=== PATIENT | male | born 1980 | race Caucasian/White ===

== ENCOUNTER 2017-01-29 23:52 | Emergency (ER) | payer MEDICAID, MEDICARE ==
[~2017-01-29] VITALS: Ht 175.3 cm; Wt 99.8 kg
[~2017-01-29 23:52] MED LIST: ALPR0.5T PO; ALPR1T; ALPR1TAB2 PO; CARI250T PO; CEPH500C PO; CRB200T PO; CRS350T PO; HYDR-2890 PO; HYDR-34 PO; HYDR118S10 PO; HYDR1CAP2; METO10TA3 PO; MORP100C16 PO; MORP10CA8 PO; MORP15TA PO; MTH750T PO; NF-ESOM40C PO; OXYC15TA74 PO; TRAM-21 PO; TRAM50TA2 PO; seizure medication PO
[2017-01-29] MEDS ORDERED: EPINEPHrine INJECTION 1 MG/ML AMP IV ONE (23:54)
[2017-01-29] MEDS ORDERED: NS (IVPB) 250 ML IV ONE (23:54)
[2017-01-30] MEDS ORDERED: D5W IV SOLUTION (EXCEL) 250 ML IV ONE (00:35)
[2017-01-30] MEDS ORDERED: NOREPINEPHRINE 4 MG/4 ML (LEVOPHED) AMP IV ONE (00:36)
[2017-01-30 00:39] LABS: MEAN PLATELET VOLUME 10.2 FL (7.4-10.4); RED BLOOD COUNT 4.43 10^6/uL (4.35-5.85); RED CELL DISTRIBUTION WIDTH 13.7 % (10.0-14.5); WHITE BLOOD COUNT 14.4 10^3/uL (4.3-11.0)
--- NOTE | 2017-01-30 00:42 | ED CPR ---
HPI-CPR General Chief Complaint: Code Blue Stated Complaint: CODE BLUE Source of Information: EMS, Old Records Exam Limitations: Other (orotracheally intubated) History of Present Illness Time Seen by Provider: 00:07 Initial Comments Patient presents the ER by EMS with chief complaint of cardiac arrest. EMS states that the family told them the patient stood up after dinner saying he was not feeling well and clutching his chest and then fell over. He went 15 minutes without any intervention before first responders arrived started CPR and put an AED on him which advise shock 1 the numb more after that. EMS arrived and they saw asystole gave him 3 total doses of epinephrine before achieving return of spontaneous circulation just prior to walking in the door of the ER. Old ER notes show the patient was found in 2014 after being found in a ditch unresponsive. Allergies and Home Medications Allergies Coded Allergies: No Known Drug Allergies (Unverified , 05/01/09) Home Medications Alprazolam 1 Mg Tablet, 1 MG PO QID PRN for ANXIETY, (Reported) Morphine Sulfate 100 Mg Cap.er.pel, 100 MG PO BID, (Reported) Review of Systems Constitutional: see HPI (unable to obtain a complete review of systems as the patient is orotracheally intubated) Past Dulqpbj-Wofhng-Eimtnl Hx Patient Social History Recent Foreign Travel: No Contact w/Someone Who Travel: No Seasonal Allergies Seasonal Allergies: No Reproductive System Hx Reproductive Disorders: No Genitourinary Genitourinary Disorders: Kidney Stones Gastrointestinal Gastrointestinal Disorders: Gastroesophageal Reflux, Hepatitis, Hiatal Hernia, Ulcer Musculoskeletal Musculoskeletal Disorders: Back Injury, Chronic Back Pain HEENT Hearing Impairment: Hard of Hearing Psychosocial Behavioral Health Disorders: Anxiety, Depression Blood Transfusions Adverse Reaction to a Blood Tr: No Physical Exam Vital Signs Vital Sign - Last 12Hours Capillary Refill : General Appearance: Severe Distress HEENT: Other (orotracheally intubated with a 7-1/2 ET tube at 23 at the teeth.) Neck: Normal Inspection, Supple Respiratory: Lungs Clear, Normal Breath Sounds (bilaterally), Other (Ambu bag ventilation) Cardiovascular: No Edema, Other (heart rate 59 blood pressure 120s systolic) Gastrointestinal: Soft, Abnormal Bowel Sounds (absent), Distended Neurologic/Psychiatric: Other ([place] Coma Scale 3T) Skin: Normal Color, Warm/Dry Progress/Results/Core Measures Results/Orders Lab Results Laboratory Tests Test 01/30/17 00:15 01/30/17 00:31 01/30/17 00:37 Range/Units White Blood Count 14.4 H 4.3-11.0 10^3/uL Red Blood Count 4.43 4.35-5.85 10^6/uL Hemoglobin 13.3 13.3-17.7 G/DL Hematocrit 40 40-54 % Mean Corpuscular Volume 91 80-99 FL Mean Corpuscular Hemoglobin 30 25-34 PG Mean Corpuscular Hemoglobin Concent 33 32-36 G/DL Red Cell Distribution Width 13.7 10.0-14.5 % Platelet Count 180 130-400 10^3/uL Mean Platelet Volume 10.2 7.4-10.4 FL Sodium Level 142 135-145 MMOL/L Potassium Level 3.8 3.6-5.0 MMOL/L Chloride Level 103 98-107 MMOL/L Carbon Dioxide Level 13 L 21-32 MMOL/L Anion Gap 26 H 5-14 MMOL/L Blood Urea Nitrogen 9 7-18 MG/DL Creatinine 1.53 H 0.60-1.30 MG/DL Estimat Glomerular Filtration Rate 51 BUN/Creatinine Ratio 6 Glucose Level 298 H 70-105 MG/DL Calcium Level 8.9 8.5-10.1 MG/DL Magnesium Level 3.1 H 1.8-2.4 MG/DL Total Bilirubin 0.2 0.1-1.0 MG/DL Aspartate Amino Transf (AST/SGOT) 103 H 5-34 U/L Alanine Aminotransferase (ALT/SGPT) 105 H 0-55 U/L Alkaline Phosphatase 96 40-136 U/L Troponin I 0.84 *H <0.30 NG/ML Total Protein 6.2 L 6.4-8.2 GM/DL Albumin 3.2 3.2-4.5 GM/DL Urine Color YELLOW Urine Clarity CLEAR Urine pH 7 5-9 Urine Specific [place] 1.010 L 1.016-1.022 Urine Protein 1+ H NEGATIVE Urine Glucose (UA) NEGATIVE NEGATIVE Urine Ketones NEGATIVE NEGATIVE Urine Nitrite NEGATIVE NEGATIVE Urine Bilirubin NEGATIVE NEGATIVE Urine Urobilinogen NORMAL NORMAL MG/DL Urine Leukocyte Esterase NEGATIVE NEGATIVE Urine RBC (Auto) 2+ H NEGATIVE Urine RBC 2-5 H /HPF Urine WBC NONE /HPF Urine Squamous Epithelial Cells 0-2 /HPF Urine Crystals NONE /LPF Urine Bacteria TRACE /HPF Urine Casts NONE /LPF Urine Mucus MODERATE H /LPF Urine Other FEW SPERM H /HPF Urine Culture Indicated NO Urine Opiates Screen POSITIVE H NEGATIVE Urine Oxycodone Screen NEGATIVE NEGATIVE Urine Methadone Screen NEGATIVE NEGATIVE Urine Propoxyphene Screen NEGATIVE NEGATIVE Urine Barbiturates Screen NEGATIVE NEGATIVE Ur Tricyclic Antidepressants Screen NEGATIVE NEGATIVE Urine Phencyclidine Screen NEGATIVE NEGATIVE Urine Amphetamines Screen NEGATIVE NEGATIVE Urine Methamphetamines Screen NEGATIVE NEGATIVE Urine Benzodiazepines Screen POSITIVE H NEGATIVE Urine Cocaine Screen NEGATIVE NEGATIVE Urine Cannabinoids Screen NEGATIVE NEGATIVE Blood Gas Puncture Site R RAD Blood Gas Patient Temperature 97.0 Arterial Blood pH 7.03 *L 7.37-7.43 Arterial Blood Partial Pressure CO2 42 35-45 MMHG Arterial Blood Partial Pressure O2 200 H 79-93 MMHG Arterial Blood HCO3 11 *L 23-27 MMOL/L Arterial Blood Total CO2 12.1 L 21.0-31.0 MMOL/L Arterial Blood Oxygen Saturation 99 94-100 % Arterial Blood Base Excess -18.0 L -2.5-2.5 MMOL/L Timur Test YES-POS Blood Gas Ventilator Setting NO Blood Gas Inspired Oxygen 15L My Orders Orders - CELE CORBETT Chest 1 View, Ap/Pa Only (01/30/17 ) Cbc No Diff (01/30/17 00:31) Comprehensive Metabolic Panel (01/30/17 00:31) Troponin I (01/30/17 00:31) Magnesium (01/30/17 00:31) Lactic Acid Analyzer (01/30/17 00:31) Arterial Blood Gas (01/30/17 00:31) D5w Iv Solution (Deaver) (Dextrose 5% Melo (01/30/17 00:35) Norepinephrine (Levophed) (01/30/17 00:36) Ua Culture If Indicated (01/30/17 00:55) Blood Culture (01/30/17 00:55) Drug Screen Stat (Urine) (01/30/17 00:55) Midazolam Injection (Versed Injection) (01/30/17 01:06) Fentanyl Injection (Sublimaze Injection (01/30/17 01:07) Medications Given in ED Current Medications Medications Dose Ordered Sig/Liz Route Start Time Stop Time Status Last Admin Dose Admin Dextrose/Water 250 ml @ ud STK-MED ONCE IV 01/30/17 00:35 01/30/17 00:43 DC 01/30/17 00:48 250 MLS/HR Fentanyl Citrate 100 mcg STK-MED ONCE .ROUTE 01/30/17 01:07 01/30/17 01:16 DC 01/30/17 01:17 100 MCG Midazolam HCl 5 mg STK-MED ONCE .ROUTE 01/30/17 01:06 01/30/17 01:16 DC 01/30/17 01:17 5 MG Norepinephrine 4 mg STK-MED ONCE IV 01/30/17 00:36 01/30/17 00:44 DC 01/30/17 00:48 4 MG Vital Signs/I&O Vital Sign - Last 12Hours 01/30/17 01/30/17 00:09 00:09 Temp 97.1 Pulse 50 Resp 8 0 B/P (MAP) 140/97 Pulse Ox 98 O2 Delivery Ambu-Bag Ambu Bag O2 Flow Rate 15.00 15.00 Progress Note #1: Time: 00:50 Progress Note Please see nursing notes for exact times. Patient came in in spontaneous circulation with a good blood pressure but prior to getting the epinephrine drip started the patient's blood pressure started to fall and his heart rate stopped. Did about 2 rounds of CPR and the patient had ROSC again. One more time the patient window arrest before being brought out after about 2 rounds of CPR. Epinephrine drip and Levophed drip eventually was initiated. Every time the patient was in pulseless electrical activity. With the patient's blood pressure stable 80 to 100 systolic with a good heart rate and we have contacted [facility] and spoke with Dr. Rowe who will accept and [facility] will transport. ETA is approximately 15-20 minutes. We are working on the third liter and we have two peripheral IVs. PH is just above 7.07 bicarbonate is not indicated. Ventilation appears to be good. Bicarbonate is 11 CO2 is 42. Progress Note #2: Time: 01:30 Progress Note Patient's blood pressure was getting up to 160s over 100 so epinephrine was cut back in half to 10 mcg/m and levophed was cut back to 2.5. Patient was then transferred to care of [facility] flight with instructions to further down titrate epinephrine and keep blood pressure to normal range. Patient was given 5 mg Versed in the 100 g of fentanyl for sedation 1. Diagnostic Imaging Diagonstic Imaging: Xray Plain Films/CT/US/NM/MRI: chest Comments OG In the stomach. ET tube in good position 2-1/2-3 cm above the gregg. Reviewed: Reviewed by Me Departure Impression Impression: Primary Impression: Cardiac arrest Disposition: XFER SHT-TRM HOSP Condition: Improved Transfer Time Spoke to Accepting Phy: 00:35 Transfer Progress Notes Discussed the case imaging lab and findings with Dr. Rowe, [facility]. Transfer Time: 01:45 Transfer Facility: [facility] Method of Transfer: Air (med flight) Departure-Patient Inst. Referrals: NO,LOCAL PHYSICIAN (PCP/Family) Primary Care Physician CELE CORBETT Jan 30, 2017 00:42
[2017-01-30 00:46] LABS: ABG HCO3 11 MMOL/L (23-27); ABG OXYGEN SATURATION 99 % (94-100); ABG PCO2 42 MMHG (35-45); ABG PO2 200 MMHG (79-93); ABG TCO2 12.1 MMOL/L (21.0-31.0); ALLENS TEST YES-POS
[2017-01-30 00:48] LABS: ABG PH 7.03 (7.37-7.43)
[2017-01-30 00:53] LABS: ALBUMIN 3.2 GM/DL (3.2-4.5); BILIRUBIN,TOTAL 0.2 MG/DL (0.1-1.0); CALCIUM 8.9 MG/DL (8.5-10.1); CREATININE SERUM 1.53 MG/DL (0.60-1.30); MAGNESIUM 3.1 MG/DL (1.8-2.4); POTASSIUM 3.8 MMOL/L (3.6-5.0); TOTAL PROTEIN 6.2 GM/DL (6.4-8.2)
[2017-01-30 01:02] LABS: TROPONIN I 0.84 NG/ML (<0.30)
[2017-01-30 01:03] LABS: BILIRUBIN,URINE NEGATIVE (NEGATIVE); KETONES,URINE NEGATIVE (NEGATIVE); LEUKOCYTE ESTERASE ,URINE NEGATIVE (NEGATIVE); NITRITE,URINE NEGATIVE (NEGATIVE); PH,URINE 7 (5-9); PROTEIN,URINE 1+ (NEGATIVE); UROBILINOGEN,URINE NORMAL (NORMAL)
[2017-01-30] MEDS ORDERED: MIDAZOLAM 5 MG/5 ML (VERSED) VIAL ONE (01:06)
[2017-01-30] MEDS ORDERED: fentaNYL INJECTION 100 MCG/2 ML AMP ONE (01:07)
[2017-01-30 01:19] LABS: SQUAMOUS EPITHELIAL CELL,UR 0-2 /HPF
[2017-01-30 01:30] VITALS: BP 168/124
--- OUTSIDE RECORDS SUMMARY | 2017-01-30 06:51 | XMS REPORT | Continuity of Care Document ---
Author Author [facility] Organization [facility] Address Unknown Phone Unavailable Allergies Active Description Code Type Severity Reaction Onset Reported/Identified Relationship to Patient Clinical Status Yes No Known Drug Allergies [id number] Drug Allergy Mild N/A 05/01/2009 Medications Problems Date Dx Coded Attending Type Code Diagnosis Diagnosed By 02/06/2014 SUKUMAR FERGUSON GARMENT SEWING MACHINE OPERATOR Ot 724.5 02/06/2014 SUKUMAR FERGUSON GARMENT SEWING MACHINE OPERATOR Ot 729.5 02/20/2014 DOMINIK CALDWELL MD Ot 292.0 02/20/2014 DOMINIK CALDWELL MD Ot 333.85 07/04/2014 LEX BUCHANAN MD Ot 070.70 07/04/2014 LEX BUCHANAN MD Ot 292.9 07/04/2014 LEX BUCHANAN MD Ot 300.00 07/04/2014 LEX BUCHANAN MD Ot 305.00 07/04/2014 LEX BUCHANAN MD Ot 305.1 07/04/2014 ELX BUCHANAN MD Ot 305.20 07/04/2014 LEX BUCHANAN MD Ot 305.50 07/04/2014 LEX BUCHANAN MD Ot 305.70 07/04/2014 LEX BUCHANAN MD Ot 305.80 07/04/2014 LEX BUCHANAN MD Ot 311 07/04/2014 LEX BUCHANAN MD Ot 338.29 07/04/2014 LEX BUCHANAN MD Ot 530.81 07/04/2014 LEX BUCHANAN MD Ot 723.1 07/04/2014 LEX BUCHANAN MD Ot 724.5 07/04/2014 LEX BUCHANAN MD Ot 728.88 07/04/2014 LEX BUCHANAN MD Ot 780.09 07/04/2014 LEX BUCHANAN MD Ot 965.00 07/04/2014 LEX BUCHANAN MD Ot 969.05 07/04/2014 LEX BUCHANAN MD Ot 969.4 07/04/2014 LEX BUCHANAN MD Ot 969.6 07/04/2014 LEX BUCHANAN MD Ot 969.72 07/04/2014 CHANEL DIOR, LEX Del Castillo Ot E850.2 07/04/2014 CHANEL DIOR, LEX Del Castillo Ot E853.2 07/04/2014 CHANEL DIOR, LEX Del Castillo Ot E854.0 07/04/2014 CHANEL DIOR, LEX Del Castillo Ot E854.1 07/04/2014 CHANEL DIOR, LEX Del Castillo Ot E854.2 07/04/2014 CHANEL DIOR, LEX Del Castillo Ot V12.71 07/04/2014 CHANEL DIOR, LEX Del Castillo Ot 070.70 07/04/2014 CHANEL DIOR, LEX Del Castillo Ot 292.9 07/04/2014 CHANEL DIOR, LEX Del Castillo Ot 300.00 07/04/2014 HCANEL DIOR, LEX Del Castillo Ot 305.00 07/04/2014 CHANEL DIOR, LEX Del Castillo Ot 305.1 07/04/2014 CHANEL DIOR, LEX Del Castillo Ot 305.20 07/04/2014 CHANEL DIOR, LEX Del Castillo Ot 305.50 07/04/2014 CHANEL DIOR, LEX Del Castillo Ot 305.70 07/04/2014 CHANEL DIOR, LEX Del Castillo Ot 305.80 07/04/2014 CHANEL DIOR, LEX Del Castillo Ot 311 07/04/2014 CHANEL DIOR, LEX Del Castillo Ot 338.29 07/04/2014 CHANEL DIOR, LEX Del Castillo Ot 530.81 07/04/2014 CHANEL DIOR, LEX Del Castillo Ot 723.1 07/04/2014 LEX BUCHANAN MD Ot 724.5 07/04/2014 CHANEL DIOR, LEX Del Castillo Ot 728.88 07/04/2014 CHANEL DIOR, LEX Del Castillo Ot 780.09 07/04/2014 CHANEL DIOR, LEX Del Castillo Ot 916.0 07/04/2014 CHANEL DIOR, LEX Del Castillo Ot 965.00 07/04/2014 LEX BUCHANAN MD Ot 969.05 07/04/2014 LEX BUCHANAN MD Ot 969.4 07/04/2014 CHANEL DIOR, LEX Del Castillo Ot 969.6 07/04/2014 CHANEL DIOR, LEX Del Castillo Ot 969.72 07/04/2014 LEX BUCHANAN MD Ot E000.8 07/04/2014 LEX BUCHANAN MD Ot E850.2 07/04/2014 LEX BUCHANAN MD Ot E853.2 07/04/2014 LEX BUCHANAN MD Ot E854.0 07/04/2014 LEX BUCHANAN MD Ot E854.1 07/04/2014 LEX BUCHANAN MD Ot E854.2 07/04/2014 LEX BUCHANAN MD Ot E928.9 07/04/2014 LEX BUCHANAN MD Ot V03.82 07/04/2014 LEX BUCHANAN MD Ot V04.81 07/04/2014 LEX BUCHANAN MD Ot V12.71 Procedures Results Encounters ACCT No. Visit Date/Time Discharge Status Pt. Type Provider Facility Loc./Unit Complaint [id number] 07/03/2014 04:24:00 2014 15:06:00 DIS Inpatient LEX BUCHANAN MD [facility] ICU [id number] 02/20/2014 13:01:00 2013 14:48:00 DIS Emergency DOMINIK CALDWELL MD [facility] ER [id number] 02/06/2014 09:23:00 2013 11:04:00 DIS Emergency SUKUMAR FERGUSON APRN [facility] ER [id number] 11/08/2013 20:55:00 2013 23:59:59 CLS Emergency [id number] 08/02/2013 23:40:00 2013 15:00:00 DIS Inpatient [id number] 08/13/2012 13:46:00 2012 23:59:59 CLS Outpatient
--- NOTE | 2017-01-30 07:24 | Diagnostic Imaging Report ---
INDICATION: CODE BLUE. FINDINGS: ET tube is in good position. NG tube is present in the stomach. Lungs are well-aerated. There are no infiltrates. Heart is not enlarged. No evidence of pulmonary edema. No pneumothorax or pleural effusion. IMPRESSION: Satisfactory tube placement with lungs clear. Dictated by: Dictated on workstation # [id number]
== END 2017-01-30 01:30 | disposition short-term general hospital (02) ==
LOC: EDUNIT# 23:52 → ER 23:53
DX: I46.9 Cardiac arrest, cause unspecified (principal); K21.9 Gastro-esophageal reflux disease without esophagitis; F41.9 Anxiety disorder, unspecified; F32.9 Major depressive disorder, single episode, unspecified; Z87.442 Personal history of urinary calculi
CPT/HCPCS: 36415; 71010; 80053; 80306; 81000; 82805; 83735; 84484; 85027; 93041